=== PATIENT | female | born 1945 | race Caucasian/White ===

== ENCOUNTER 2017-05-30 18:43 | Emergency (ER) | payer MEDICARE, BC ==
[~2017-05-30] VITALS: Ht 160 cm; Wt 74.8 kg
[~2017-05-30 18:43] MED LIST: ACET500 PO; ACETAMINOPHEN500 MG PO; ALBU3IS INH; AMOCLA875 PO; ATORVASTATIN CA80 MG PO; BENZ100A PO; Baclofen10 MG PO; CEPH500 PO; DOXY100 PO; DULERA 200 MCG/13 GM INH; Guaifenesin Wit10 ML PO; HYDR1TAB94 PO; IBUP400 PO; IBUP600 PO; IRON240 MG PO; Ipratr-Albuterol3 ML IH; LEVO750 PO; MONT10T PO; NICO7 TOP; OXYC5 PO; PRED10 PO; PRED20 PO; Prednisone20 MG PO; Robaxin-750750 MG PO; Tessalon200 MG PO; Ventolin Soln3 ML INH
== END 2017-05-30 21:57 | disposition home or self-care (01) ==
LOC: ER 18:43
DX: M70.71 Other bursitis of hip, right hip (principal); F17.200 Nicotine dependence, unspecified, uncomplicated; Z90.49 Acquired absence of other specified parts of digestive tract; J44.9 Chronic obstructive pulmonary disease, unspecified; Z79.899 Other long term (current) drug therapy; Z87.01 Personal history of pneumonia (recurrent); Z96.641 Presence of right artificial hip joint; Z96.642 Presence of left artificial hip joint
CPT/HCPCS: 73502; 99283

== ENCOUNTER 2017-08-07 18:06 | Emergency (ER) | payer MEDICARE, BC ==
[~2017-08-07] VITALS: Ht 160 cm; Wt 72.1 kg
[2017-08-07] MEDS ORDERED: ATOR80 PO (19:08)
== END 2017-08-07 20:36 | disposition home or self-care (01) ==
LOC: ER 18:06
DX: M25.531 Pain in right wrist (principal); J44.9 Chronic obstructive pulmonary disease, unspecified; E78.00 Pure hypercholesterolemia, unspecified; Z79.899 Other long term (current) drug therapy; F17.210 Nicotine dependence, cigarettes, uncomplicated
CPT/HCPCS: 29125; 73110; 96372; 99283; J1885; L3917

== ENCOUNTER 2017-12-23 08:53 | Day surgery (SDC) | payer MEDICARE, BC ==
[~2017-12-23] VITALS: Ht 160 cm; Wt 76.7 kg
[~2017-12-23 08:53] MED LIST changes: +ATOR80 PO
[2017-12-23] MEDS ORDERED: PANT20 PO (09:41)
[2017-12-23] MEDS ORDERED: CYCL10 PO (09:41)
[2017-12-23] MEDS ORDERED: ATOR80 PO (09:41)
[2017-12-23] MEDS ORDERED: ALBU3IS INH (09:42)
[2017-12-24 04:24] LABS: BASOPHILS ABSOLUTE AUTO 0.02 K/mm3 (0.00-0.23); BASOPHILS PERCENT AUTO 0 % (0-2); EOSINOPHILS ABSOLUTE AUTO 0.01 K/mm3 (0.00-0.68); EOSINOPHILS PERCENT AUTO 0 % (0-6); Hematocrit 34.6 % (33.0-51.0); Hemoglobin 11.3 g/dL (11.5-16.0); IMMATURE GRAN ABSOLUTE AUTO 0.05 K/mm3 (0.00-0.10); IMMATURE GRAN PERCENT AUTO 0 % (0-1); LYMPHOCYTES ABSOLUTE AUTO 0.72 K/mm3 (0.84-5.20); LYMPHOCYTES PERCENT AUTO 6 % (21-46); MONOCYTES ABSOLUTE AUTO 0.83 K/mm3 (0.16-1.47); MONOCYTES PERCENT AUTO 7 % (4-13); Mean Corpuscular HGB 28.5 pg (26.0-34.0); Mean Corpuscular HGB Conc 32.7 g/dL (31.5-36.5); Mean Corpuscular Volume 87 fL (80-100); Mean Platelet Volume 10.7 fL (9.1-12.4); NEUTROPHILS ABSOLUTE AUTO 10.07 K/mm3 (1.96-9.15); NEUTROPHILS PERCENT AUTO 86 % (41-73); Platelet Count 246 K/mm3 (150-400); RDW Coefficient Variation 13.2 % (11.7-14.2); RDW Standard Deviation 42.6 fL (35.1-46.3); Red Blood Cell Count 3.97 M/mm3 (3.80-5.20)
[2017-12-24 04:45] LABS: Anion Gap 7 mmol/L (6-16); Blood Urea Nitrogen 17 mg/dL (8-24); Bun/Creatinine Ratio 26.5 (12.0-20.0); CO2, Blood 28 mmol/L (21-32); Calcium, Blood 7.9 mg/dL (8.5-10.1); Chloride, Blood 106 mmol/L (98-108); Creatinine, Blood 0.64 mg/dL (0.40-1.00); Glomerular Filtration Rate >60 (60-); Glucose, Blood 124 mg/dL (70-99); Magnesium, Blood 1.7 mg/dL (1.6-2.4); Potassium, Blood 4.1 mmol/L (3.5-5.5); Sodium, Blood 141 mmol/L (136-145)
[2017-12-24] MEDS ORDERED: Percocet 5-3251 EACH PO (10:30)
[2017-12-24] MEDS ORDERED: ASPI325EC PO (10:31)
== END 2017-12-24 10:30 | disposition home or self-care (01) ==
LOC: ORSCMMR 08:53 → ORD 10:30 → ORSCMMR 10:30 → SURS 13:14 → ORSCMMR 13:14 → SURS 12-24 10:30
PROVIDERS: Orthopaedic Surgery
PROC: 8E0YXBZ Computer Assisted Procedure of Lower Extremity (ICD-10-PCS; principal; 2017-12-23 10:30)
PROC: 0SRC0J9 Replacement of Right Knee Joint with Synthetic Substitute, Cemented, Open Approach (ICD-10-PCS; principal; 2017-12-23 10:30)
DX: M17.11 Unilateral primary osteoarthritis, right knee (principal); J44.9 Chronic obstructive pulmonary disease, unspecified; Z87.891 Personal history of nicotine dependence; Z79.899 Other long term (current) drug therapy
CPT/HCPCS: 36415; 73560-RT; 80048; 83735; 85025; 86850; 86900; 86901; 88300; 94640; 94760; 97110; 97116; 97162; 97530; C1713; C1776; C9113; G8978; G8979; G8980; J0171; J0690; J0735; J1100; J1885; J2250; J2405; J2765; J2795; J3370; J7120